=== PATIENT | male | born 1965 | race Caucasian/White ===

== ENCOUNTER 2018-07-18 08:45 | Inpatient (IN) | payer OTHER ==
--- NOTE | 2018-07-14 11:34 | PCM.PREANE ---
Preanesthetic Assessment - Anesthesia/Transfusion/Family Hx Anesthesia History: Prior Anesthesia Without Reaction Family History of Anesthesia Reaction: No Transfusion History: No Prior Transfusion(s) Intubation History: Unknown - Review of Systems Pulmonary: No Symptoms (ALESSIO/quit smoking) Neurological: No Symptoms (DJD/ History of Spondylosis with back pain) - Physical Assessment NPO Status Date: 07/17/18 Height: 1.85 m ASA Class: 2 Mental Status: Alert & Oriented x3 - Lab Values: Laboratory Last Values MRSA (PCR) Negative 06/21/18 10:22 - Imaging/EKG Impressions: EKG: NSR rate= 67, Incomplete RBBB, voltage criteria: left ventricular hypertrophy Echocardiogram: CXR: negative - Allergies Allergies/Adverse Reactions: Allergies Allergy/AdvReac Type Severity Reaction Status Date / Time No Known Allergies Allergy Verified 05/22/16 06:39 - Anesthesia Plan Pre-Op Medication Ordered: Other (pre-op meds: lyrica, tylenol, oxycodone given at:) - Acknowledgements Anesthesia Type Planned: Spinal Pt an Appropriate Candidate for the Planned Anesthesia: Yes Alternatives and Risks of Anesthesia Discussed w Pt/Guardian: Yes Pt/Guardian Understands and Agrees with Anesthesia Plan: Yes PreAnesthesia Questionnaire - CURRENT (IN HOUSE) MEDS Current Meds: Current Medications Acetaminophen (Tylenol) 975 mg PO ONETIME [facility] Stop: 07/18/18 18:00 Oxycodone HCl (Oxycontin) 10 mg PO ONETIME [facility] Stop: 07/18/18 18:00 Pregabalin (Lyrica) 50 mg PO ONETIME [facility] Stop: 07/18/18 18:00
[~2018-07-18 08:45] MED LIST: Acetaminophen 325 MG Tab PO SCH; Lactated Ringers 1,000 ML IV SCH; Lidocaine 1%/Sod Bicarbonate in NS 8.4% 1 ML Syringe IDERM PRN; Pregabalin 25 MG Cap PO SCH; Sodium Chloride 0.9% 10 ML Syringe FLUSH PRN; oxyCODONE ER 10 MG TAB.ER PO SCH
--- NOTE | 2018-07-29 13:47 | PCM.PREANE ---
Preanesthetic Assessment - Anesthesia/Transfusion/Family Hx Anesthesia History: Prior Anesthesia Without Reaction Family History of Anesthesia Reaction: No Transfusion History: No Prior Transfusion(s) Intubation History: Unknown - Review of Systems Pulmonary: No Symptoms (Quit smoking in 1989, ALESSIO, Chewing tobacco:) Neurological: No Symptoms (Back Pain/Spondylosis noted/DJD) - Physical Assessment NPO Status Date: 07/31/18 Height: 1.85 m ASA Class: 2 - Lab Values: Laboratory Last Values MRSA (PCR) Negative 07/26/18 10:11 All lab values reviewed and noted and within acceptable ranges to proceed with scheduled procedure. - Imaging/EKG Impressions: EKG: NSR rate=67, Incomplete right BBB, left ventricular hypertrophy (voltage criteria). Echocardiogram: EF:60-65%, trace tricuspid valve regurgitation CXR: negative - Allergies Allergies/Adverse Reactions: Allergies Allergy/AdvReac Type Severity Reaction Status Date / Time No Known Allergies Allergy Verified 05/22/16 06:39 - Anesthesia Plan Pre-Op Medication Ordered: Other (PreOperative Meds: lyrica, tylenol, oxycontin( all P.O.).) - Acknowledgements Anesthesia Type Planned: Spinal (Left adductor canal block under US guidance for post operative pain control requested by Dr. Gonzalez.) Pt an Appropriate Candidate for the Planned Anesthesia: Yes Alternatives and Risks of Anesthesia Discussed w Pt/Guardian: Yes Pt/Guardian Understands and Agrees with Anesthesia Plan: Yes PreAnesthesia Questionnaire - CURRENT (IN HOUSE) MEDS Current Meds: Current Medications Acetaminophen (Tylenol) 975 mg PO ONETIME [facility] Stop: 08/01/18 14:00 Lactated Ringer's (Ringers, Lactated) 1,000 mls @ 125 mls/hr IV ASDIRECTED [facility] Stop: 08/01/18 23:00 Lidocaine/Sodium Bicarbonate (Buffered Lidocaine 1% In Ns 8.4%) 0.25 ml IDERM ONETIME PRN PRN Reason: Prior to IV Start Stop: 08/01/18 18:00 Oxycodone HCl (Oxycontin) 10 mg PO ONETIME [facility] Stop: 08/01/18 14:00 Pregabalin (Lyrica) 50 mg PO ONETIME [facility] Stop: 08/01/18 14:00 Sodium Chloride (Saline Flush) 10 ml FLUSH ASDIRECTED PRN PRN Reason: Keep Vein Open Stop: 08/01/18 18:00 Discontinued Medications Acetaminophen (Tylenol) 975 mg PO ONETIME [facility] Stop: 07/18/18 18:00 Lactated Ringer's (Ringers, Lactated) 1,000 mls @ 125 mls/hr IV ASDIRECTED [facility] Stop: 07/18/18 23:00 Lidocaine/Sodium Bicarbonate (Buffered Lidocaine 1% In Ns 8.4%) 0.25 ml IDERM ONETIME PRN PRN Reason: Prior to IV Start Stop: 07/18/18 18:00 Oxycodone HCl (Oxycontin) 10 mg PO ONETIME [facility] Stop: 07/18/18 18:00 Pregabalin (Lyrica) 50 mg PO ONETIME [facility] Stop: 07/18/18 18:00 Sodium Chloride (Saline Flush) 10 ml FLUSH ASDIRECTED PRN PRN Reason: Keep Vein Open Stop: 07/18/18 18:00
[2018-08-01] MEDS ORDERED: Lactated Ringers 1,000 ML IV SCH (00:01)
[2018-08-01] MEDS ORDERED: Sodium Chloride 0.9% 10 ML Syringe FLUSH PRN (00:01)
[2018-08-01] MEDS ORDERED: Lidocaine 1%/Sod Bicarbonate in NS 8.4% 1 ML Syringe IDERM PRN (00:01)
[2018-08-01] MEDS ORDERED: oxyCODONE ER 10 MG TAB.ER PO SCH (06:00)
[2018-08-01] MEDS ORDERED: Pregabalin 25 MG Cap PO SCH (06:00)
[2018-08-01] MEDS ORDERED: Acetaminophen 325 MG Tab PO SCH (06:00)
[2018-11-07] MEDS ORDERED: Lactated Ringers 1,000 ML IV SCH (00:01)
[2018-11-07] MEDS ORDERED: Lidocaine 1%/Sod Bicarbonate in NS 8.4% 1 ML Syringe IDERM PRN (00:01)
[2018-11-07] MEDS ORDERED: Pregabalin 25 MG Cap PO SCH (06:00)
[2018-11-07] MEDS ORDERED: oxyCODONE ER 10 MG TAB.ER PO SCH (06:00)
[2018-11-07] MEDS ORDERED: Acetaminophen 325 MG Tab PO SCH (06:00)
[2018-11-07] MEDS ORDERED: Ropivacaine 0.5% 5 MG/ML 30 ML SDV ONE (07:18)
[2018-11-07] MEDS ORDERED: EPINEPHrine 1 MG/ML SDV ONE (07:18)
[2018-11-07] MEDS ORDERED: Propofol 200 MG/20 ML SDV ONE ×6 (07:22→09:57)
[2018-11-07] MEDS ORDERED: fentaNYL 100 MCG/2 ML SDV ONE ×2 (07:22→09:55)
[2018-11-07] MEDS ORDERED: Midazolam 1 MG/ML 2 ML SDV ONE ×2 (07:23→09:56)
[2018-11-07] MEDS ORDERED: Lidocaine 1% 4 ML ONE (07:27)
[2018-11-07] MEDS ORDERED: Lidocaine 1% 2 ML ONE (07:30)
[2018-11-07] MEDS ORDERED: Bupivacaine 0.75% 30 ML SDV ONE ×2 (07:30→09:59)
[2018-11-07] MEDS ORDERED: Vancomycin 1 GM SDV ONE (07:31)
[2018-11-07] MEDS ORDERED: Iodine/Sodium Iodide 2% Tincture 30 ML Bottle ONE (07:31)
[2018-11-07] MEDS ORDERED: Bupivacaine 0.25% 10 ML SDV ONE (07:32)
[2018-11-07] MEDS ORDERED: ceFAZolin 1 GM Vial ONE ×3 (07:32→10:02)
--- NOTE | 2018-11-07 07:46 | PCM.PREANE ---
Preanesthetic Assessment - Anesthesia/Transfusion/Family Hx Anesthesia History: Prior Anesthesia Without Reaction Family History of Anesthesia Reaction: No Transfusion History: No Prior Transfusion(s) Intubation History: Unknown - Review of Systems General: No Symptoms Pulmonary: No Symptoms Cardiovascular: No Symptoms Gastrointestinal: No Symptoms Neurological: No Symptoms Other: Reports: None - Physical Assessment NPO Status Date: 07/31/18 NPO Status Time: 22:00 Pulse: 68 O2 Sat by Pulse Oximetry: 96 Respiratory Rate: 16 Blood Pressure: 156/94 Temperature: 36.6 C Height: 1.85 m Weight: 114.759 kg ASA Class: 2 Mental Status: Alert & Oriented x3 Airway Class: Mallampati = 1 Dentition: Reports: Normal Dentition Thyro-Mental Finger Breadths: 3 Mouth Opening Finger Breadths: 5 ROM/Head Extension: Full Lungs: Clear to Auscultation, Normal Respiratory Effort Cardiovascular: Regular Rate, Regular Rhythm - Lab Values: Laboratory Last Values MRSA (PCR) Negative 10/24/18 14:10 - Allergies Allergies/Adverse Reactions: Allergies Allergy/AdvReac Type Severity Reaction Status Date / Time No Known Allergies Allergy Verified 11/06/18 19:07 - Blood Blood Available: No - Anesthesia Plan Pre-Op Medication Ordered: Beta Nilson Beta Nilson: Metoprolol Med Last Dose Date: 11/07/18 Med Last Dose Time: 08:00 - Acknowledgements Anesthesia Type Planned: Spinal, MAC Pt an Appropriate Candidate for the Planned Anesthesia: Yes Alternatives and Risks of Anesthesia Discussed w Pt/Guardian: Yes Pt/Guardian Understands and Agrees with Anesthesia Plan: Yes PreAnesthesia Questionnaire HEENT History: Reports: Other (See Below) Other HEENT History: hearing loss, nasal fracutre, tinnitis Cardiovascular History: Reports: Aneurysm Respiratory History: Reports: Sleep Apnea Gastrointestinal History: Reports: None Genitourinary History: Reports: None HAND ROLLER History: Reports: None Musculoskeletal History: Reports: Other (See Below) Other Musculoskeletal History: spondylosis, left knee pain, back pain, rotator cuff strain Neurological History: Reports: None Psychiatric History: Reports: None Endocrine/Metabolic History: Reports: None Hematologic History: Reports: None Immunologic History: Reports: None Oncologic (Cancer) History: Reports: None Dermatologic History: Reports: None - Past Surgical History Head Surgeries/Procedures: Reports: None Cardiovascular Surgical History: Reports: None Respiratory Surgical History: Reports: None GI Surgical History: Reports: Colonoscopy Female Surgical History: Reports: None Male Surgical History: Reports: None Endocrine Surgical History: Reports: None Neurological Surgical History: Reports: None Musculoskeletal Surgical History: Reports: Arthroscopic Knee Oncologic Surgical History: Reports: None - SUBSTANCE USE Smoking Status *Q: Current Every Day Smoker Tobacco Use Within Last Twelve Months: Snuff/Dip Recreational Drug Use History: No - HOME MEDS Home Medications: Home Meds Cholecalciferol (Vitamin D3) [Vitamin D3] 5,000 unit PO DAILY 11/06/18 [History] Metoprolol Succinate [Toprol Xl] 25 mg PO DAILY 11/06/18 [History] - CURRENT (IN HOUSE) MEDS Current Meds: Current Medications Acetaminophen (Tylenol) 975 mg PO ONETIME [facility] Stop: 11/07/18 14:00 Last Admin: 11/07/18 07:35 Dose: 975 mg Aspirin (Ecotrin) 325 mg PO BID MICHELINE Bisacodyl (Dulcolax) 5 mg PO DAILY PRN PRN Reason: Constipation Morphine Sulfate 8 mg/Epinephrine HCl 0.3 mg/Cefuroxime Sodium 750 mg/Ketorolac Tromethamine 30 mg/Sodium Chloride 27.9 ml 0 mg .XX ONETIME ONE Stop: 11/07/18 09:01 Cyclobenzaprine HCl (Flexeril) 10 mg PO TID PRN PRN Reason: Spasms Docusate Sodium (Colace) 100 mg PO BID MICHELINE Famotidine (Pepcid) 20 mg PO Q12H [facility] Lactated Ringer's (Ringers, Lactated) 1,000 mls @ 125 mls/hr IV ASDIRECTED [facility] Stop: 11/07/18 23:00 Cefazolin Sodium/Dextrose 2 gm (/ Premix) 50 mls @ 100 mls/hr IV Q8H [facility] Stop: 11/07/18 23:29 Ketorolac Tromethamine (Toradol) 15 mg IVPUSH Q6H PRN PRN Reason: Pain Lidocaine/Sodium Bicarbonate (Buffered Lidocaine 1% In Ns 8.4%) 0.25 ml IDERM ONETIME PRN PRN Reason: Prior to IV Start Stop: 11/07/18 18:00 Magnesium Hydroxide (Milk Of Magnesia) 30 ml PO BID PRN PRN Reason: Constipation Morphine Sulfate (Morphine) 2 mg IVPUSH Q2H PRN PRN Reason: Breakthrough Pain Naloxone HCl (Narcan) 0.1 mg IVPUSH Q5M PRN PRN Reason: Oversedation Ondansetron HCl (Zofran) 4 mg IVPUSH Q6H PRN PRN Reason: Nausea/Vomiting Oxycodone HCl (Oxycontin) 10 mg PO ONETIME [facility] Stop: 11/07/18 14:00 Last Admin: 11/07/18 07:34 Dose: 10 mg Oxycodone/Acetaminophen (Percocet 325-5 Mg) 1 - 2 tab PO Q4H PRN PRN Reason: Pain Pregabalin (Lyrica) 50 mg PO ONETIME [facility] Stop: 11/07/18 14:00 Last Admin: 11/07/18 07:33 Dose: 50 mg Senna (Senna) 8.6 mg PO BID PRN PRN Reason: Constipation Discontinued Medications Acetaminophen (Tylenol) 975 mg PO ONETIME [facility] Stop: 07/18/18 18:00 Acetaminophen (Tylenol) 975 mg PO ONETIME [facility] Stop: 08/01/18 14:00 Bupivacaine HCl (Sensorcaine-Mpf 0.75%) Confirm Administered Dose 30 ml .ROUTE .STK-MED ONE Stop: 11/07/18 07:31 Bupivacaine HCl (Sensorcaine-Mpf 0.25%) Confirm Administered Dose 30 ml .ROUTE .STK-MED ONE Stop: 11/07/18 07:33 Cefazolin Sodium (Ancef) Confirm Administered Dose 2 gm .ROUTE .STK-MED ONE Stop: 11/07/18 07:33 Epinephrine HCl (Adrenalin) Confirm Administered Dose 1 mg .ROUTE .STK-MED ONE Stop: 11/07/18 07:19 Fentanyl (Sublimaze) Confirm Administered Dose 100 mcg .ROUTE .STK-MED ONE Stop: 11/07/18 07:23 Lactated Ringer's (Ringers, Lactated) 1,000 mls @ 125 mls/hr IV ASDIRECTED [facility] Stop: 07/18/18 23:00 Lactated Ringer's (Ringers, Lactated) 1,000 mls @ 125 mls/hr IV ASDIRECTED [facility] Stop: 08/01/18 23:00 Lidocaine HCl (Xylocaine-Mpf 1%) Confirm Administered Dose 4 mls @ as directed .ROUTE .STK-MED ONE Stop: 11/07/18 07:28 Lidocaine HCl (Xylocaine-Mpf 1%) Confirm Administered Dose 2 mls @ as directed .ROUTE .STK-MED ONE Stop: 11/07/18 07:31 Iodine (Iodine 2% Mild Tincture) Confirm Administered Dose 30 ml .ROUTE .STK- MED ONE Stop: 11/07/18 07:32 Lidocaine/Sodium Bicarbonate (Buffered Lidocaine 1% In Ns 8.4%) 0.25 ml IDERM ONETIME PRN PRN Reason: Prior to IV Start Stop: 07/18/18 18:00 Lidocaine/Sodium Bicarbonate (Buffered Lidocaine 1% In Ns 8.4%) 0.25 ml IDERM ONETIME PRN PRN Reason: Prior to IV Start Stop: 08/01/18 18:00 Midazolam HCl (Versed 1 Mg/Ml) Confirm Administered Dose 2 mg .ROUTE .STK-MED ONE Stop: 11/07/18 07:24 Oxycodone HCl (Oxycontin) 10 mg PO ONETIME [facility] Stop: 07/18/18 18:00 Oxycodone HCl (Oxycontin) 10 mg PO ONETIME [facility] Stop: 08/01/18 14:00 Pregabalin (Lyrica) 50 mg PO ONETIME [facility] Stop: 07/18/18 18:00 Pregabalin (Lyrica) 50 mg PO ONETIME [facility] Stop: 08/01/18 14:00 Propofol (Diprivan 20 Ml) Confirm Administered Dose 400 mg .ROUTE .STK-MED ONE Stop: 11/07/18 07:23 Propofol (Diprivan 20 Ml) Confirm Administered Dose 200 mg .ROUTE .STK-MED ONE Stop: 11/07/18 07:24 Ropivacaine (Naropin 0.5%) Confirm Administered Dose 30 ml .ROUTE .STK-MED ONE Stop: 11/07/18 07:19 Sodium Chloride (Saline Flush) 10 ml FLUSH ASDIRECTED PRN PRN Reason: Keep Vein Open Stop: 07/18/18 18:00 Sodium Chloride (Saline Flush) 10 ml FLUSH ASDIRECTED PRN PRN Reason: Keep Vein Open Stop: 08/01/18 18:00 Tranexamic Acid (Cyklokapron) Confirm Administered Dose 1,000 mg .ROUTE .STK- MED ONE Stop: 11/07/18 07:32 Vancomycin HCl (Vancomycin) Confirm Administered Dose 1 gm .ROUTE .[facility] ONE Stop: 11/07/18 07:32
[2018-11-07] MEDS ORDERED: diphenhydrAMINE 50 MG/ML SDV IVPUSH PRN (07:53)
[2018-11-07] MEDS ORDERED: Ondansetron 4 MG/2 ML SDV IVPUSH PRN ×2 (07:53→10:00)
[2018-11-07] MEDS ORDERED: fentaNYL 100 MCG/2 ML SDV IVPUSH PRN (07:53)
[2018-11-07] MEDS ORDERED: Lactated Ringers 1,000 ML ONE (09:22)
[2018-11-07] MEDS ORDERED: ePHEDrine/Normal Saline 25 MG/5 ML Syringe ONE (09:39)
--- NOTE | 2018-11-07 09:57 | PCM.CONS ---
H&P History of Present Illness - General Date of Service: 11/07/18 Admit Problem/Dx: Admission Diagnosis/Problem Admission Diagnosis/Problem Osteoarthritis of knee Source of Information: Patient, Old Records, Provider, RN, RN Notes Reviewed History Limitations: Reports: No Limitations - History of Present Illness Initial Comments - Free Text/Narative: Robin Lopez is a 53 yo male patient of Dr. Gonzalez who is post-operative day 0 of left TKA. Hospital medicine was consulted for post-operative medical care. At this time he is resting comfortably in bed. Pain is controlled. He denies any chest pain, shortness of breath, palpitations, nausea, or vomiting. He carries a history of: HABEMATOLEL, Spondylolysis, LBP, ALESSIO, HTN, Aortic aneurism - 4.5cm at root. He is a former smoker. He is a full code. His primary care provider is Dr. Berumen with the [facility]. Left Knee Pain Score (Numeric/FACES): 8 - Related Data Allergies/Adverse Reactions: Allergies Allergy/AdvReac Type Severity Reaction Status Date / Time No Known Allergies Allergy Verified 11/06/18 19:07 Home Medications: Home Meds Cholecalciferol (Vitamin D3) [Vitamin D3] 5,000 unit PO DAILY 11/06/18 [History] Metoprolol Succinate [Toprol Xl] 25 mg PO DAILY 11/06/18 [History] Past Medical History HEENT History: Reports: Other (See Below) Other HEENT History: hearing loss, nasal fracutre, tinnitis Cardiovascular History: Reports: Aneurysm Respiratory History: Reports: Sleep Apnea Gastrointestinal History: Reports: None Genitourinary History: Reports: None SPARMAKER History: Reports: None Musculoskeletal History: Reports: Other (See Below) Other Musculoskeletal History: spondylosis, left knee pain, back pain, rotator cuff strain Neurological History: Reports: None Psychiatric History: Reports: None Endocrine/Metabolic History: Reports: None Hematologic History: Reports: None Immunologic History: Reports: None Oncologic (Cancer) History: Reports: None Dermatologic History: Reports: None - Past Surgical History Head Surgeries/Procedures: Reports: None Cardiovascular Surgical History: Reports: None Respiratory Surgical History: Reports: None GI Surgical History: Reports: Colonoscopy Female Surgical History: Reports: None Male Surgical History: Reports: None Endocrine Surgical History: Reports: None Neurological Surgical History: Reports: None Musculoskeletal Surgical History: Reports: Arthroscopic Knee Oncologic Surgical History: Reports: None Social & Family History - Tobacco Use Smoking Status *Q: Current Every Day Smoker Years of Tobacco use: 25 Packs/Tins Daily: 0.2 Used Tobacco, but Quit: No - Caffeine Use Caffeine Use: Reports: Coffee - Recreational Drug Use Recreational Drug Use: No H&P Review of Systems - Review of Systems: Review Of Systems: See Below General: Reports: No Symptoms. Denies: Fever, Chills, Malaise, Weakness, Fatigue HEENT: Reports: No Symptoms. Denies: Headaches, Sore Throat Pulmonary: Reports: No Symptoms. Denies: Shortness of Breath, Wheezing, Pleuritic Chest Pain, Cough, Sputum Cardiovascular: Reports: No Symptoms. Denies: Chest Pain, Palpitations, Edema Gastrointestinal: Reports: No Symptoms. Denies: Abdominal Pain, Constipation, Diarrhea, Nausea, Vomiting Genitourinary: Reports: No Symptoms. Denies: Pain Musculoskeletal: Reports: Leg Pain Skin: Reports: No Symptoms Psychiatric: Reports: No Symptoms. Denies: Confusion Neurological: Reports: No Symptoms Hematologic/Lymphatic: Reports: No Symptoms Immunologic: Reports: No Symptoms Exam - Exam Exam: See Below - Vital Signs Vital Signs: Last Vital Signs Temp 97.9 F 11/07/18 07:51 Pulse 68 11/07/18 07:51 Resp 16 11/07/18 07:51 BP 156/94 H 11/07/18 07:51 Pulse Ox 96 11/07/18 07:51 Weight: 253 lb - Exam Quality Assessment: DVT Prophylaxis General: Alert, Oriented, Cooperative. No: Mild Distress HEENT: Conjunctiva Clear, EACs Clear, EOMI, Hearing Intact, Mucosa Moist & [place] , Nares Patent, Normal Nasal Septum, Posterior Pharynx Clear, PERRLA Neck: Supple, Trachea Midline Lungs: Clear to Auscultation, Normal Respiratory Effort Cardiovascular: Regular Rate, Regular Rhythm GI/Abdominal Exam: Normal Bowel Sounds, Soft, Non-Tender, No Distention, No Abnormal Bruit (Male) Exam: Deferred Rectal (Males) Exam: Deferred Back Exam: Normal Inspection, Full Range of Motion Extremities: No Pedal Edema, Normal Capillary Refill, Leg Pain, Limited Range of Motion, Other (Bandage in place on left leg. Bandage is dry and intact. Cooling pack in place. ) Peripheral Pulses: 2+: Radial (L), Radial (R), Dorsalis Pedis (L), Dorsalis Pedis (R) Skin: Warm, Dry, Intact Neurological: Cranial Nerves Intact (grossly ) Neuro Extensive - Mental Status: Alert, Oriented x3, Normal Mood/Affect, Normal Cognition, Memory Intact - Patient Data Lab Results Last 24 hrs: Laboratory Results - last 24 hr 11/07/18 Range/Units 07:37 APTT 29 (24-31) SECONDS Consult PN Assessment/Plan POD#: 0 Procedures: Procedures CT ANGIOGRAPHY CHEST (08/16/18) POLYSOM 6/>YRS CPAP 4/> PARM (07/20/16) TTE W/DOPPLER COMPLETE (07/21/18) X-RAY EXAM CHEST 2 VIEWS (06/29/18) X-RAY EXAM OF SHOULDER (08/30/14) (1) S/P total knee arthroplasty SNOMED Code(s): 4676920944568, 986291227, 2132340722757 Code(s): Z96.659 - PRESENCE OF UNSPECIFIED ARTIFICIAL KNEE JOINT Priority: High Current Visit: Yes Qualifiers: Laterality: left Qualified Code(s): Z96.652 - Presence of left artificial knee joint (2) Spondylolysis SNOMED Code(s): 209447790 Code(s): M43.00 - SPONDYLOLYSIS, SITE UNSPECIFIED Priority: Low Current Visit: No (3) Lower back pain SNOMED Code(s): 357236211 Code(s): M54.5 - LOW BACK PAIN Priority: Low Current Visit: No Qualifiers: Chronicity: chronic Back pain laterality: unspecified Sciatica presence: unspecified whether sciatica present Qualified Code(s): M54.5 - Low back pain ; G89.29 - Other chronic pain (4) ALESSIO (obstructive sleep apnea) SNOMED Code(s): 32424404 Code(s): G47.33 - OBSTRUCTIVE SLEEP APNEA (ADULT) (PEDIATRIC) Priority: Medium Current Visit: No (5) HTN (hypertension) SNOMED Code(s): 58791263 Code(s): I10 - ESSENTIAL (PRIMARY) HYPERTENSION Priority: Low Current Visit: No Qualifiers: Hypertension type: unspecified Qualified Code(s): I10 - Essential (primary ) hypertension (6) Aortic arch aneurysm SNOMED Code(s): 549804888 Code(s): I71.2 - THORACIC AORTIC ANEURYSM, WITHOUT RUPTURE Priority: Medium Current Visit: No Problem List Initiated/Reviewed/Updated: Yes Plan: I/P: Acute: S/P left total knee arthroplasty - post-operative day 0 -DVT prophylaxis and pain management per primary care team -PT/OT -IS/RT -Monitor oxygen saturation -Titrate oxygen as needed -Vital signs stable -Monitor labs -Pre-operative Hgb was 15.4 -Pre-operative GFR was >60 -LVEF of 60-65% Osteoarthritis of left knee -Pain management per primary care team Chronic: HABEMATOLEL Spondylolysis Lower back pain ALESSIO HTN 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 His PCP is Dr. Berumen with the [facility], Principal Ios Developer: Dr. Hart Thank you for allowing us to participate in the care of this patient!! Requesting Provider: Dr. Gonzalez Date Consult Requested: 11/07/18 Reason for Consult: Post-operative medical managment Patient History Reviewed: Yes Admission H&P Reviewed: Yes Time Spent (in minutes): 40
[2018-11-07] MEDS ORDERED: Ondansetron 4 MG/2 ML SDV ONE (09:59)
[2018-11-07] MEDS ORDERED: Lidocaine 1% 0 ML ONE (09:59)
[2018-11-07] MEDS ORDERED: Bisacodyl 5 MG Tab PO PRN (10:00)
[2018-11-07] MEDS ORDERED: Naloxone 0.4 MG/ML SDV IVPUSH PRN (10:00)
[2018-11-07] MEDS ORDERED: Sennosides 8.6 MG Tab PO PRN (10:00)
[2018-11-07] MEDS ORDERED: Magnesium Hydroxide 400 MG/5 ML Susp 30 ML Cup PO PRN (10:00)
[2018-11-07] MEDS ORDERED: Morphine 2 MG/ML Syringe IVPUSH PRN (10:00)
[2018-11-07] MEDS: Morphine 8 MG, EPINEPHrine 0.3 MG, Cefuroxime 750 MG, Ketorolac 30 MG, Sodium Chloride ... ONE ×10 (10:17→13:58)
--- NOTE | 2018-11-07 10:55 | PCM.POSTAN ---
POST ANESTHESIA ASSESSMENT - MENTAL STATUS Mental Status: Alert - VITAL SIGNS Pulse Rate: 70 SaO2: 95 Resp Rate: 16 Blood Pressure: 121/71 Temperature: 36.3 C - RESPIRATORY Respiratory Status: Respiratory Rate WNL, Airway Patent, O2 Saturation Stable - CARDIOVASCULAR CV Status: Pulse Rate WNL, Blood Pressure Stable - GASTROINTESTINAL GI Status: No Symptoms - POST OP HYDRATION Hydration Status: Adequate & Stable
--- NOTE | 2018-11-07 11:49 | PCM.SN ---
- Free Text/Narrative Note: Left selective femoral nerve block at the adductor canal for post-procedure pain control under US guidance requested by Dr. Gonzalez. Time Out: 1130 Start: 1130 End: 1136 Chart reviewed. Consent signed. Questions answered. Appropriate monitors applied. Time out performed. Left mid-shaft femur identified with ultrasound, scanning medially of femur, the femoral artery in the adductor canal visualized , and the femoral nerve located laterally to the artery. The skin was prepped lateral to the ultrasound probe with chlorahexadine times two. The 21ga 4 insulated block needle was inserted under direct ultrasound guidance into the adductor canal. 25mL of 0.5% ropivacaine with 1:200,000 epinephrine was injected circumferentially around the nerve with intermittent negative aspiration noted. Patient tolerated the procedure well. Sterile technique noted along with sterile gloves, mask, and sterile probe cover. See picture on progress note and vital signs on nurses notes. Block completed in PACU. JACOB Granger
--- NOTE | 2018-11-07 12:13 | CR ---
Left knee: Two portable views of the left knee were obtained. Comparison: No prior knee exam. Knee prosthesis is seen. Components are aligned. Soft tissue air is noted from the surgical procedure. Underlying bony structures are intact. Impression: 1. Satisfactory appearance of recently placed left knee prosthesis. Diagnostic code #2
[2018-11-07] MEDS: Acetaminophen/oxyCODONE 325-5 MG Tab PO PRN ×2 (13:43→18:33)
[2018-11-07] MEDS: Cyclobenzaprine 10 MG Tab PO PRN (15:45)
[2018-11-07] MEDS: ceFAZolin 2 GM in Premix Bag 1 BAG IV SCH (17:18)
[2018-11-07] MEDS: Docusate Sodium 100 MG Cap PO SCH (20:56)
[2018-11-07] MEDS: Famotidine 20 MG Tab PO SCH (20:56)
[2018-11-07] MEDS: Ketorolac 15 MG/ML SDV IVPUSH PRN (21:42)
[2018-11-08] MEDS: ceFAZolin 2 GM in Premix Bag 1 BAG IV SCH ×2 (00:30→09:00)
[2018-11-08] MEDS: Acetaminophen/oxyCODONE 325-5 MG Tab PO PRN ×2 (03:50→08:59)
[2018-11-08] MEDS: Ketorolac 15 MG/ML SDV IVPUSH PRN (06:46)
--- NOTE | 2018-11-08 07:10 | PCM.CONSN ---
- General Info Date of Service: 11/08/18 Admission Dx/Problem (Free Text): Admission Diagnosis/Problem Admission Diagnosis/Problem Osteoarthritis of knee Functional Status: Reports: Pain Controlled, Tolerating Diet, Ambulating, Urinating, Incentive Spirometry. Denies: New Symptoms - Review of Systems General: Reports: No Symptoms. Denies: Fever, Weakness, Chills HEENT: Reports: No Symptoms. Denies: Headaches, Sore Throat Pulmonary: Reports: No Symptoms. Denies: Shortness of Breath, Cough, Sputum, Wheezing Cardiovascular: Reports: No Symptoms. Denies: Chest Pain, Palpitations, Dyspnea on Exertion, Edema Gastrointestinal: Reports: No Symptoms. Denies: Abdominal Pain, Constipation, Diarrhea, Nausea, Vomiting Genitourinary: Reports: No Symptoms. Denies: Pain Musculoskeletal: Reports: Leg Pain Skin: Reports: No Symptoms Neurological: Reports: No Symptoms. Denies: Confusion Psychiatric: Reports: No Symptoms - Patient Data Vitals - Most Recent: Last Vital Signs Temp 98.1 F 11/07/18 20:52 Pulse 79 11/08/18 03:50 Resp 14 11/08/18 03:50 BP 131/85 11/08/18 03:50 Pulse Ox 95 11/08/18 03:50 Weight - Most Recent: 257 lb I&O - Last 24 Hours: Intake & Output 11/07/18 11/08/18 11/08/18 22:59 06:59 14:59 Intake Total 1100 300 Balance 1100 300 Lab Results Last 24 Hours: Laboratory Results - last 24 hr 11/07/18 11/08/18 11/08/18 Range/Units 07:37 05:30 05:30 WBC 8.50 (4.23-9.07) K/mm3 RBC 4.49 L (4.63-6.08) M/mm3 Hgb 13.2 L (13.7-17.5) gm/L Hct 39.4 L (40.1-51.0) % MCV 87.8 (79.0-92.2) fl MCH 29.4 (25.7-32.2) pg MCHC 33.5 (32.2-35.5) g/dl RDW Std Deviation 40.9 (35.1-43.9) fL Plt Count 197 (163-337) K/mm3 MPV 9.8 (9.4-12.3) fl APTT 29 (24-31) SECONDS Sodium 137 (136-145) mEq/L Potassium 4.1 (3.5-5.1) mEq/L Chloride 103 (98-107) mEq/L Carbon Dioxide 26 (21-32) mEq/L Anion Gap 12.1 (5-15) BUN 17 (7-18) mg/dL Creatinine 1.1 (0.7-1.3) mg/dL Est Cr Clr Drug Dosing 87.20 mL/min Estimated GFR (MDRD) > 60 (>60) mL/min BUN/Creatinine Ratio 15.5 (14-18) Glucose 118 H (74-106) mg/dL Calcium 8.2 L (8.5-10.1) mg/dL Total Bilirubin 1.2 H (0.2-1.0) mg/dL AST 15 (15-37) U/L ALT 34 (16-63) U/L Alkaline Phosphatase 46 (46-116) U/L Total Protein 6.2 L (6.4-8.2) g/dl Albumin 3.2 L (3.4-5.0) g/dl Globulin 3.0 gm/dL Albumin/Globulin Ratio 1.1 (1-2) Med Orders - Current: Current Medications Aspirin (Ecotrin) 325 mg PO BID [facility] Bisacodyl (Dulcolax) 5 mg PO DAILY PRN PRN Reason: Constipation Cholecalciferol (Vitamin D3) 5,000 unit PO DAILY [facility] Cyclobenzaprine HCl (Flexeril) 10 mg PO TID PRN PRN Reason: Spasms Last Admin: 11/07/18 15:45 Dose: 10 mg Docusate Sodium (Colace) 100 mg PO BID [facility] Last Admin: 11/07/18 20:56 Dose: 100 mg Famotidine (Pepcid) 20 mg PO Q12H [facility] Last Admin: 11/07/18 20:56 Dose: 20 mg Cefazolin Sodium/Dextrose 2 gm (/ Premix) 50 mls @ 100 mls/hr IV Q8H [facility] Stop: 11/08/18 09:59 Last Admin: 11/08/18 00:30 Dose: 100 mls/hr Ketorolac Tromethamine (Toradol) 15 mg IVPUSH Q6H PRN PRN Reason: Pain Last Admin: 11/08/18 06:46 Dose: 15 mg Magnesium Hydroxide (Milk Of Magnesia) 30 ml PO BID PRN PRN Reason: Constipation Metoprolol Succinate (Toprol Xl) 25 mg PO DAILY [facility] Morphine Sulfate (Morphine) 2 mg IVPUSH Q2H PRN PRN Reason: Breakthrough Pain Naloxone HCl (Narcan) 0.1 mg IVPUSH Q5M PRN PRN Reason: Oversedation Ondansetron HCl (Zofran) 4 mg IVPUSH Q6H PRN PRN Reason: Nausea/Vomiting Oxycodone/Acetaminophen (Percocet 325-5 Mg) 1 - 2 tab PO Q4H PRN PRN Reason: Pain Last Admin: 11/08/18 03:50 Dose: 2 tab Senna (Senna) 8.6 mg PO BID PRN PRN Reason: Constipation Discontinued Medications Acetaminophen (Tylenol) 975 mg PO ONETIME [facility] Stop: 07/18/18 18:00 Acetaminophen (Tylenol) 975 mg PO ONETIME [facility] Stop: 08/01/18 14:00 Acetaminophen (Tylenol) 975 mg PO ONETIME [facility] Stop: 11/07/18 14:00 Last Admin: 11/07/18 07:35 Dose: 975 mg Bupivacaine HCl (Sensorcaine-Mpf 0.75%) Confirm Administered Dose 30 ml .ROUTE .STK-MED ONE Stop: 11/07/18 07:31 Bupivacaine HCl (Sensorcaine-Mpf 0.25%) Confirm Administered Dose 30 ml .ROUTE .STK-MED ONE Stop: 11/07/18 07:33 Last Admin: 11/07/18 10:18 Dose: 30 ml Bupivacaine HCl (Sensorcaine-Mpf 0.75%) Confirm Administered Dose 30 ml .ROUTE .STK-MED ONE Stop: 11/07/18 10:00 Cefazolin Sodium (Ancef) Confirm Administered Dose 2 gm .ROUTE .STK-MED ONE Stop: 11/07/18 07:33 Last Admin: 11/07/18 10:12 Dose: 2 gm Cefazolin Sodium (Ancef) Confirm Administered Dose 2 gm .ROUTE .STK-MED ONE Stop: 11/07/18 09:27 Cefazolin Sodium (Ancef) Confirm Administered Dose 2 gm .ROUTE .STK-MED ONE Stop: 11/07/18 10:03 Morphine Sulfate 8 mg/Epinephrine HCl 0.3 mg/Cefuroxime Sodium 750 mg/Ketorolac Tromethamine 30 mg/Sodium Chloride 27.9 ml 0 mg .XX ONETIME ONE Stop: 11/07/18 09:01 Last Admin: 11/07/18 13:58 Dose: Not Given Diphenhydramine HCl (Benadryl) 25 mg IVPUSH Q6H PRN PRN Reason: pruritis Stop: 11/07/18 16:00 Ephedrine Sulfate (Ephedrine In Ns) Confirm Administered Dose 25 mg .ROUTE .STK- MED ONE Stop: 11/07/18 09:40 Epinephrine HCl (Adrenalin) Confirm Administered Dose 1 mg .ROUTE .STK-MED ONE Stop: 11/07/18 07:19 Fentanyl (Sublimaze) Confirm Administered Dose 100 mcg .ROUTE .STK-MED ONE Stop: 11/07/18 07:23 Fentanyl (Sublimaze) 50 mcg IVPUSH Q5M PRN PRN Reason: Pain Stop: 11/07/18 16:00 Fentanyl (Sublimaze) Confirm Administered Dose 100 mcg .ROUTE .STK-MED ONE Stop: 11/07/18 09:56 Lactated Ringer's (Ringers, Lactated) 1,000 mls @ 125 mls/hr IV ASDIRECTED [facility] Stop: 07/18/18 23:00 Lactated Ringer's (Ringers, Lactated) 1,000 mls @ 125 mls/hr IV ASDIRECTED [facility] Stop: 08/01/18 23:00 Lactated Ringer's (Ringers, Lactated) 1,000 mls @ 125 mls/hr IV ASDIRECTED [facility] Stop: 11/07/18 23:00 Last Admin: 11/07/18 07:45 Dose: 125 mls/hr Lidocaine HCl (Xylocaine-Mpf 1%) Confirm Administered Dose 4 mls @ as directed .ROUTE .STK-MED ONE Stop: 11/07/18 07:28 Lidocaine HCl (Xylocaine-Mpf 1%) Confirm Administered Dose 2 mls @ as directed .ROUTE .STK-MED ONE Stop: 11/07/18 07:31 Lactated Ringer's (Ringers, Lactated) Confirm Administered Dose 1,000 mls @ as directed .ROUTE .STK-MED ONE Stop: 11/07/18 09:23 Lidocaine HCl (Xylocaine-Mpf 1%) Confirm Administered Dose 0 mls @ as directed .ROUTE .STK-MED ONE Stop: 11/07/18 10:00 Iodine (Iodine 2% Mild Tincture) Confirm Administered Dose 30 ml .ROUTE .STK- MED ONE Stop: 11/07/18 07:32 Last Admin: 11/07/18 10:10 Dose: 18 ml Lidocaine/Sodium Bicarbonate (Buffered Lidocaine 1% In Ns 8.4%) 0.25 ml IDERM ONETIME PRN PRN Reason: Prior to IV Start Stop: 07/18/18 18:00 Lidocaine/Sodium Bicarbonate (Buffered Lidocaine 1% In Ns 8.4%) 0.25 ml IDERM ONETIME PRN PRN Reason: Prior to IV Start Stop: 08/01/18 18:00 Lidocaine/Sodium Bicarbonate (Buffered Lidocaine 1% In Ns 8.4%) 0.25 ml IDERM ONETIME PRN PRN Reason: Prior to IV Start Stop: 11/07/18 18:00 Last Admin: 11/07/18 07:45 Dose: 0.25 ml Midazolam HCl (Versed 1 Mg/Ml) Confirm Administered Dose 2 mg .ROUTE .STK-MED ONE Stop: 11/07/18 07:24 Midazolam HCl (Versed 1 Mg/Ml) Confirm Administered Dose 2 mg .ROUTE .STK-MED ONE Stop: 11/07/18 09:57 Ondansetron HCl (Zofran) 4 mg IVPUSH ONETIME PRN PRN Reason: Nausea/Vomiting Stop: 11/07/18 16:00 Ondansetron HCl (Zofran) Confirm Administered Dose 4 mg .ROUTE .STK-MED ONE Stop: 11/07/18 10:00 Oxycodone HCl (Oxycontin) 10 mg PO ONETIME [facility] Stop: 07/18/18 18:00 Oxycodone HCl (Oxycontin) 10 mg PO ONETIME [facility] Stop: 08/01/18 14:00 Oxycodone HCl (Oxycontin) 10 mg PO ONETIME [facility] Stop: 11/07/18 14:00 Last Admin: 11/07/18 07:34 Dose: 10 mg Pregabalin (Lyrica) 50 mg PO ONETIME [facility] Stop: 07/18/18 18:00 Pregabalin (Lyrica) 50 mg PO ONETIME [facility] Stop: 08/01/18 14:00 Pregabalin (Lyrica) 50 mg PO ONETIME [facility] Stop: 11/07/18 14:00 Last Admin: 11/07/18 07:33 Dose: 50 mg Propofol (Diprivan 20 Ml) Confirm Administered Dose 400 mg .ROUTE .STK-MED ONE Stop: 11/07/18 07:23 Propofol (Diprivan 20 Ml) Confirm Administered Dose 200 mg .ROUTE .STK-MED ONE Stop: 11/07/18 07:24 Propofol (Diprivan 20 Ml) Confirm Administered Dose 400 mg .ROUTE .STK-MED ONE Stop: 11/07/18 09:56 Propofol (Diprivan 20 Ml) Confirm Administered Dose 200 mg .ROUTE .STK-MED ONE Stop: 11/07/18 09:57 Propofol (Diprivan 20 Ml) Confirm Administered Dose 200 mg .ROUTE .STK-MED ONE Stop: 11/07/18 09:58 Propofol (Diprivan 20 Ml) Confirm Administered Dose 200 mg .ROUTE .STK-MED ONE Stop: 11/07/18 09:58 Ropivacaine (Naropin 0.5%) Confirm Administered Dose 30 ml .ROUTE .STK-MED ONE Stop: 11/07/18 07:19 Sodium Chloride (Saline Flush) 10 ml FLUSH ASDIRECTED PRN PRN Reason: Keep Vein Open Stop: 07/18/18 18:00 Sodium Chloride (Saline Flush) 10 ml FLUSH ASDIRECTED PRN PRN Reason: Keep Vein Open Stop: 08/01/18 18:00 Tranexamic Acid (Cyklokapron) Confirm Administered Dose 1,000 mg .ROUTE .STK- MED ONE Stop: 11/07/18 07:32 Last Admin: 11/07/18 10:29 Dose: 1,000 mg Vancomycin HCl (Vancomycin) Confirm Administered Dose 1 gm .ROUTE .STK-MED ONE Stop: 11/07/18 07:32 Last Admin: 11/07/18 10:20 Dose: 1 gm - Exam Quality Assessment: DVT Prophylaxis General: Alert, Oriented, Cooperative, No Acute Distress HEENT: Pupils Equal, Pupils Reactive, EOMI, Mucous Membr. Moist/[place] Neck: Supple, Trachea Midline, No JVD Lungs: Clear to Auscultation, Normal Respiratory Effort Cardiovascular: Regular Rate, Regular Rhythm GI/Abdominal Exam: Normal Bowel Sounds, Soft, Non-Tender, No Distention, No Abnormal Bruit (Male) Exam: Deferred Back Exam: Normal Inspection, Full Range of Motion Extremities: No Pedal Edema, Normal Capillary Refill, Leg Pain, Limited Range of Motion, Other (Bandage in place on right leg. Cooling pack in place. ) Peripheral Pulses: 2+: Radial (L), Radial (R), Dorsalis Pedis (L), Dorsalis Pedis (R) Skin: Warm, Dry, Intact Wound/Incisions: Dressing Dry and Intact, No Drainage Neurological: No New Focal Deficit Psy/Mental Status: Alert, Normal Affect, Normal Mood Consult PN Assessment/Plan POD#: 1 Procedures: Procedures CT ANGIOGRAPHY CHEST (08/16/18) POLYSOM 6/>YRS CPAP 4/> PARM (07/20/16) TTE W/DOPPLER COMPLETE (07/21/18) X-RAY EXAM CHEST 2 VIEWS (06/29/18) X-RAY EXAM OF SHOULDER (08/30/14) (1) S/P total knee arthroplasty SNOMED Code(s): 1910872632629, 228283135, 6128249805200 Code(s): Z96.659 - PRESENCE OF UNSPECIFIED ARTIFICIAL KNEE JOINT Priority: High Current Visit: Yes Qualifiers: Laterality: left Qualified Code(s): Z96.652 - Presence of left artificial knee joint (2) Spondylolysis SNOMED Code(s): 884103692 Code(s): M43.00 - SPONDYLOLYSIS, SITE UNSPECIFIED Priority: Low Current Visit: No (3) Lower back pain SNOMED Code(s): 603693932 Code(s): M54.5 - LOW BACK PAIN Priority: Low Current Visit: No Qualifiers: Chronicity: chronic Back pain laterality: unspecified Sciatica presence: unspecified whether sciatica present Qualified Code(s): M54.5 - Low back pain ; G89.29 - Other chronic pain (4) ALESSIO (obstructive sleep apnea) SNOMED Code(s): 08815698 Code(s): G47.33 - OBSTRUCTIVE SLEEP APNEA (ADULT) (PEDIATRIC) Priority: Medium Current Visit: No (5) HTN (hypertension) SNOMED Code(s): 67671072 Code(s): I10 - ESSENTIAL (PRIMARY) HYPERTENSION Priority: Low Current Visit: No Qualifiers: Hypertension type: unspecified Qualified Code(s): I10 - Essential (primary ) hypertension (6) Aortic arch aneurysm SNOMED Code(s): 392239939 Code(s): I71.2 - THORACIC AORTIC ANEURYSM, WITHOUT RUPTURE Priority: Medium Current Visit: No Problem List Initiated/Reviewed/Updated: Yes My Orders Last 24 Hours: My Active Orders 11/08/18 09:00 Metoprolol Succinate [Toprol XL] 25 mg PO DAILY Plan: I/P: Acute: S/P left total knee arthroplasty - post-operative day 1 -DVT prophylaxis and pain management per primary care team -PT/OT -IS/RT -Monitor oxygen saturation -Titrate oxygen as needed -Vital signs stable -Monitor labs -Pre-operative Hgb was 15.4; Now 13.2 -Pre-operative GFR was >60; Now >60 -LVEF of 60-65% Osteoarthritis of left knee -Pain management per primary care team Chronic: [place] Spondylolysis Lower back pain ALESSIO HTN 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 His PCP is Dr. Berumen with the [facility], Carpentry Instructor: Dr. Hart From a hospitalist standpoint Samuel is doing very well. His pain is controlled and he is up ambulating and working with therapies. Labs and vital signs remain stable. He has urinated and is off of oxygen. He is cleared for discharge pending primary team and PT/OT agreement. Thank you for allowing us to participate in the care of this patient!!
--- NOTE | 2018-11-08 07:56 | PCM.SURGPN ---
- General Info Date of Service: 11/08/18 POD#: 1 Functional Status: Reports: Pain Controlled, Tolerating Diet, Ambulating, Urinating, Incentive Spirometry, Other (The pt states he is doing well.) - Patient Data Vitals - Most Recent: Last Vital Signs Temp 98.1 F 11/07/18 20:52 Pulse 79 11/08/18 03:50 Resp 14 11/08/18 03:50 BP 131/85 11/08/18 03:50 Pulse Ox 95 11/08/18 03:50 Weight - Most Recent: 257 lb I&O - Last 24 Hours: Intake & Output 11/07/18 11/08/18 11/08/18 22:59 06:59 14:59 Intake Total 1100 300 Balance 1100 300 Lab Results Last 24 Hrs: Laboratory Results - last 24 hr 11/07/18 11/08/18 11/08/18 Range/Units 07:37 05:30 05:30 WBC 8.50 (4.23-9.07) K/mm3 RBC 4.49 L (4.63-6.08) M/mm3 Hgb 13.2 L (13.7-17.5) gm/L Hct 39.4 L (40.1-51.0) % MCV 87.8 (79.0-92.2) fl MCH 29.4 (25.7-32.2) pg MCHC 33.5 (32.2-35.5) g/dl RDW Std Deviation 40.9 (35.1-43.9) fL Plt Count 197 (163-337) K/mm3 MPV 9.8 (9.4-12.3) fl APTT 29 (24-31) SECONDS Sodium 137 (136-145) mEq/L Potassium 4.1 (3.5-5.1) mEq/L Chloride 103 (98-107) mEq/L Carbon Dioxide 26 (21-32) mEq/L Anion Gap 12.1 (5-15) BUN 17 (7-18) mg/dL Creatinine 1.1 (0.7-1.3) mg/dL Est Cr Clr Drug Dosing 87.20 mL/min Estimated GFR (MDRD) > 60 (>60) mL/min BUN/Creatinine Ratio 15.5 (14-18) Glucose 118 H (74-106) mg/dL Calcium 8.2 L (8.5-10.1) mg/dL Total Bilirubin 1.2 H (0.2-1.0) mg/dL AST 15 (15-37) U/L ALT 34 (16-63) U/L Alkaline Phosphatase 46 (46-116) U/L Total Protein 6.2 L (6.4-8.2) g/dl Albumin 3.2 L (3.4-5.0) g/dl Globulin 3.0 gm/dL Albumin/Globulin Ratio 1.1 (1-2) Med Orders - Current: Current Medications Aspirin (Ecotrin) 325 mg PO BID [facility] Bisacodyl (Dulcolax) 5 mg PO DAILY PRN PRN Reason: Constipation Cholecalciferol (Vitamin D3) 5,000 unit PO DAILY [facility] Cyclobenzaprine HCl (Flexeril) 10 mg PO TID PRN PRN Reason: Spasms Last Admin: 11/07/18 15:45 Dose: 10 mg Docusate Sodium (Colace) 100 mg PO BID [facility] Last Admin: 11/07/18 20:56 Dose: 100 mg Famotidine (Pepcid) 20 mg PO Q12H [facility] Last Admin: 11/07/18 20:56 Dose: 20 mg Cefazolin Sodium/Dextrose 2 gm (/ Premix) 50 mls @ 100 mls/hr IV Q8H [facility] Stop: 11/08/18 09:59 Last Admin: 11/08/18 00:30 Dose: 100 mls/hr Ketorolac Tromethamine (Toradol) 15 mg IVPUSH Q6H PRN PRN Reason: Pain Last Admin: 11/08/18 06:46 Dose: 15 mg Magnesium Hydroxide (Milk Of Magnesia) 30 ml PO BID PRN PRN Reason: Constipation Metoprolol Succinate (Toprol Xl) 25 mg PO DAILY [facility] Morphine Sulfate (Morphine) 2 mg IVPUSH Q2H PRN PRN Reason: Breakthrough Pain Naloxone HCl (Narcan) 0.1 mg IVPUSH Q5M PRN PRN Reason: Oversedation Ondansetron HCl (Zofran) 4 mg IVPUSH Q6H PRN PRN Reason: Nausea/Vomiting Oxycodone/Acetaminophen (Percocet 325-5 Mg) 1 - 2 tab PO Q4H PRN PRN Reason: Pain Last Admin: 11/08/18 03:50 Dose: 2 tab Senna (Senna) 8.6 mg PO BID PRN PRN Reason: Constipation Discontinued Medications Acetaminophen (Tylenol) 975 mg PO ONETIME [facility] Stop: 07/18/18 18:00 Acetaminophen (Tylenol) 975 mg PO ONETIME [facility] Stop: 08/01/18 14:00 Acetaminophen (Tylenol) 975 mg PO ONETIME [facility] Stop: 11/07/18 14:00 Last Admin: 11/07/18 07:35 Dose: 975 mg Bupivacaine HCl (Sensorcaine-Mpf 0.75%) Confirm Administered Dose 30 ml .ROUTE .STK-MED ONE Stop: 11/07/18 07:31 Bupivacaine HCl (Sensorcaine-Mpf 0.25%) Confirm Administered Dose 30 ml .ROUTE .STK-MED ONE Stop: 11/07/18 07:33 Last Admin: 11/07/18 10:18 Dose: 30 ml Bupivacaine HCl (Sensorcaine-Mpf 0.75%) Confirm Administered Dose 30 ml .ROUTE .STK-MED ONE Stop: 11/07/18 10:00 Cefazolin Sodium (Ancef) Confirm Administered Dose 2 gm .ROUTE .STK-MED ONE Stop: 11/07/18 07:33 Last Admin: 11/07/18 10:12 Dose: 2 gm Cefazolin Sodium (Ancef) Confirm Administered Dose 2 gm .ROUTE .STK-MED ONE Stop: 11/07/18 09:27 Cefazolin Sodium (Ancef) Confirm Administered Dose 2 gm .ROUTE .STK-MED ONE Stop: 11/07/18 10:03 Morphine Sulfate 8 mg/Epinephrine HCl 0.3 mg/Cefuroxime Sodium 750 mg/Ketorolac Tromethamine 30 mg/Sodium Chloride 27.9 ml 0 mg .XX ONETIME ONE Stop: 11/07/18 09:01 Last Admin: 11/07/18 13:58 Dose: Not Given Diphenhydramine HCl (Benadryl) 25 mg IVPUSH Q6H PRN PRN Reason: pruritis Stop: 11/07/18 16:00 Ephedrine Sulfate (Ephedrine In Ns) Confirm Administered Dose 25 mg .ROUTE .STK- MED ONE Stop: 11/07/18 09:40 Epinephrine HCl (Adrenalin) Confirm Administered Dose 1 mg .ROUTE .STK-MED ONE Stop: 11/07/18 07:19 Fentanyl (Sublimaze) Confirm Administered Dose 100 mcg .ROUTE .[facility] ONE Stop: 11/07/18 07:23 Fentanyl (Sublimaze) 50 mcg IVPUSH Q5M PRN PRN Reason: Pain Stop: 11/07/18 16:00 Fentanyl (Sublimaze) Confirm Administered Dose 100 mcg .ROUTE .[facility] ONE Stop: 11/07/18 09:56 Lactated Ringer's (Ringers, Lactated) 1,000 mls @ 125 mls/hr IV ASDIRECTED [facility] Stop: 07/18/18 23:00 Lactated Ringer's (Ringers, Lactated) 1,000 mls @ 125 mls/hr IV ASDIRECTED [facility] Stop: 08/01/18 23:00 Lactated Ringer's (Ringers, Lactated) 1,000 mls @ 125 mls/hr IV ASDIRECTED [facility] Stop: 11/07/18 23:00 Last Admin: 11/07/18 07:45 Dose: 125 mls/hr Lidocaine HCl (Xylocaine-Mpf 1%) Confirm Administered Dose 4 mls @ as directed .ROUTE .[facility] ONE Stop: 11/07/18 07:28 Lidocaine HCl (Xylocaine-Mpf 1%) Confirm Administered Dose 2 mls @ as directed .ROUTE .[facility] ONE Stop: 11/07/18 07:31 Lactated Ringer's (Ringers, Lactated) Confirm Administered Dose 1,000 mls @ as directed .ROUTE .[facility] Stop: 11/07/18 09:23 Lidocaine HCl (Xylocaine-Mpf 1%) Confirm Administered Dose 0 mls @ as directed .ROUTE .[facility] ONE Stop: 11/07/18 10:00 Iodine (Iodine 2% Mild Tincture) Confirm Administered Dose 30 ml .ROUTE .[facility] ONE Stop: 11/07/18 07:32 Last Admin: 11/07/18 10:10 Dose: 18 ml Lidocaine/Sodium Bicarbonate (Buffered Lidocaine 1% In Ns 8.4%) 0.25 ml IDERM ONETIME PRN PRN Reason: Prior to IV Start Stop: 07/18/18 18:00 Lidocaine/Sodium Bicarbonate (Buffered Lidocaine 1% In Ns 8.4%) 0.25 ml IDERM ONETIME PRN PRN Reason: Prior to IV Start Stop: 08/01/18 18:00 Lidocaine/Sodium Bicarbonate (Buffered Lidocaine 1% In Ns 8.4%) 0.25 ml IDERM ONETIME PRN PRN Reason: Prior to IV Start Stop: 11/07/18 18:00 Last Admin: 11/07/18 07:45 Dose: 0.25 ml Midazolam HCl (Versed 1 Mg/Ml) Confirm Administered Dose 2 mg .ROUTE .STK-MED ONE Stop: 11/07/18 07:24 Midazolam HCl (Versed 1 Mg/Ml) Confirm Administered Dose 2 mg .ROUTE .STK-MED ONE Stop: 11/07/18 09:57 Ondansetron HCl (Zofran) 4 mg IVPUSH ONETIME PRN PRN Reason: Nausea/Vomiting Stop: 11/07/18 16:00 Ondansetron HCl (Zofran) Confirm Administered Dose 4 mg .ROUTE .STK-MED ONE Stop: 11/07/18 10:00 Oxycodone HCl (Oxycontin) 10 mg PO ONETIME [facility] Stop: 07/18/18 18:00 Oxycodone HCl (Oxycontin) 10 mg PO ONETIME [facility] Stop: 08/01/18 14:00 Oxycodone HCl (Oxycontin) 10 mg PO ONETIME [facility] Stop: 11/07/18 14:00 Last Admin: 11/07/18 07:34 Dose: 10 mg Pregabalin (Lyrica) 50 mg PO ONETIME [facility] Stop: 07/18/18 18:00 Pregabalin (Lyrica) 50 mg PO ONETIME [facility] Stop: 08/01/18 14:00 Pregabalin (Lyrica) 50 mg PO ONETIME [facility] Stop: 11/07/18 14:00 Last Admin: 11/07/18 07:33 Dose: 50 mg Propofol (Diprivan 20 Ml) Confirm Administered Dose 400 mg .ROUTE .STK-MED ONE Stop: 11/07/18 07:23 Propofol (Diprivan 20 Ml) Confirm Administered Dose 200 mg .ROUTE .STK-MED ONE Stop: 11/07/18 07:24 Propofol (Diprivan 20 Ml) Confirm Administered Dose 400 mg .ROUTE .STK-MED ONE Stop: 11/07/18 09:56 Propofol (Diprivan 20 Ml) Confirm Administered Dose 200 mg .ROUTE .STK-MED ONE Stop: 11/07/18 09:57 Propofol (Diprivan 20 Ml) Confirm Administered Dose 200 mg .ROUTE .STK-MED ONE Stop: 11/07/18 09:58 Propofol (Diprivan 20 Ml) Confirm Administered Dose 200 mg .ROUTE .STK-MED ONE Stop: 11/07/18 09:58 Ropivacaine (Naropin 0.5%) Confirm Administered Dose 30 ml .ROUTE .STK-MED ONE Stop: 11/07/18 07:19 Sodium Chloride (Saline Flush) 10 ml FLUSH ASDIRECTED PRN PRN Reason: Keep Vein Open Stop: 07/18/18 18:00 Sodium Chloride (Saline Flush) 10 ml FLUSH ASDIRECTED PRN PRN Reason: Keep Vein Open Stop: 08/01/18 18:00 Tranexamic Acid (Cyklokapron) Confirm Administered Dose 1,000 mg .ROUTE .STK- MED ONE Stop: 11/07/18 07:32 Last Admin: 11/07/18 10:29 Dose: 1,000 mg Vancomycin HCl (Vancomycin) Confirm Administered Dose 1 gm .ROUTE .STK-MED ONE Stop: 11/07/18 07:32 Last Admin: 11/07/18 10:20 Dose: 1 gm - Exam Wound/Incisions: Dressing Dry and Intact General: Alert, Cooperative, No Acute Distress Lungs: Normal Respiratory Effort Extremities: Other (NVS intact for BLE. Anthony's negative.) - Problem List Review Problem List Initiated/Reviewed/Updated: Yes - My Orders Last 24 Hours: Active Orders 24 hr Category Date Time Status Patient Status [ADT] Routine ADT 11/07/18 07:00 Active Antiembolic Devices [RC] 09,21 Care 11/07/18 07:00 Active Pulse Oximetry [RC] ASDIRECTED Care 11/07/18 07:52 Active Ready for Discharge [RC] PER UNIT ROUTINE Care 11/08/18 07:54 Ordered Vital Signs [RC] Q4HR Care 11/07/18 07:00 Active Consult to Physician [CONS] Routine Cons 11/07/18 07:00 Active OT Evaluation and Treatment [CONS] Routine Cons 11/07/18 06:59 Active PT Evaluation and Treatment [CONS] Routine Cons 11/07/18 06:59 Active Regular Diet [DIET] Diet 11/07/18 Lunch Active Acetaminophen/oxyCODONE [Percocet 325-5 MG] Med 11/07/18 10:00 Active 1 - 2 tab PO Q4H PRN Aspirin [Ecotrin] Med 11/08/18 09:00 Active 325 mg PO BID Bisacodyl [Dulcolax] Med 11/07/18 10:00 Active 5 mg PO DAILY PRN Cholecalciferol (Vitamin D3) [Vitamin D3] Med 11/08/18 09:00 Active 5,000 unit PO DAILY Cyclobenzaprine [Flexeril] Med 11/07/18 10:00 Active 10 mg PO TID PRN Docusate Sodium [Colace] Med 11/07/18 21:00 Active 100 mg PO BID Famotidine [Pepcid] Med 11/07/18 21:00 Active 20 mg PO Q12H Ketorolac [Toradol] Med 11/07/18 10:00 Active 15 mg IVPUSH Q6H PRN Magnesium Hydroxide [Milk of Magnesia] Med 11/07/18 10:00 Active 30 ml PO BID PRN Metoprolol Succinate [Toprol XL] Med 11/08/18 09:00 Active 25 mg PO DAILY Morphine Med 11/07/18 10:00 Active 2 mg IVPUSH Q2H PRN Naloxone [Narcan] Med 11/07/18 10:00 Active 0.1 mg IVPUSH Q5M PRN Ondansetron [Zofran] Med 11/07/18 10:00 Active 4 mg IVPUSH Q6H PRN Sennosides [Senna] Med 11/07/18 10:00 Active 8.6 mg PO BID PRN ceFAZolin [Ancef] 2 gm Med 11/07/18 17:30 Active Premix Bag 1 bag IV Q8H Antiembolic Hose [OM.PC] Per Unit Routine Oth 11/07/18 07:01 Ordered Ice Therapy [OM.PC] Per Unit Routine Oth 11/07/18 07:00 Ordered Sequential Compression Device [OM.PC] Per Unit Routine Oth 11/07/18 06:59 Ordered Resuscitation Status Routine Resus Stat 11/07/18 07:00 Ordered Medication Orders Aspirin (Ecotrin) 325 mg PO BID [facility] Bisacodyl (Dulcolax) 5 mg PO DAILY PRN PRN Reason: Constipation Cholecalciferol (Vitamin D3) 5,000 unit PO DAILY [facility] Cyclobenzaprine HCl (Flexeril) 10 mg PO TID PRN PRN Reason: Spasms Last Admin: 11/07/18 15:45 Dose: 10 mg Docusate Sodium (Colace) 100 mg PO BID [facility] Last Admin: 11/07/18 20:56 Dose: 100 mg Famotidine (Pepcid) 20 mg PO Q12H [facility] Last Admin: 11/07/18 20:56 Dose: 20 mg Cefazolin Sodium/Dextrose 2 gm (/ Premix) 50 mls @ 100 mls/hr IV Q8H [facility] Stop: 11/08/18 09:59 Last Admin: 11/08/18 00:30 Dose: 100 mls/hr Infusion: 11/07/18 17:48 Dose: 100 mls/hr Admin: 11/07/18 17:18 Dose: 100 mls/hr Ketorolac Tromethamine (Toradol) 15 mg IVPUSH Q6H PRN PRN Reason: Pain Last Admin: 11/08/18 06:46 Dose: 15 mg Admin: 11/07/18 21:42 Dose: 15 mg Magnesium Hydroxide (Milk Of Magnesia) 30 ml PO BID PRN PRN Reason: Constipation Metoprolol Succinate (Toprol Xl) 25 mg PO DAILY [facility] Morphine Sulfate (Morphine) 2 mg IVPUSH Q2H PRN PRN Reason: Breakthrough Pain Naloxone HCl (Narcan) 0.1 mg IVPUSH Q5M PRN PRN Reason: Oversedation Ondansetron HCl (Zofran) 4 mg IVPUSH Q6H PRN PRN Reason: Nausea/Vomiting Oxycodone/Acetaminophen (Percocet 325-5 Mg) 1 - 2 tab PO Q4H PRN PRN Reason: Pain Last Admin: 11/08/18 03:50 Dose: 2 tab Admin: 11/07/18 18:33 Dose: 2 tab Admin: 11/07/18 13:43 Dose: 2 tab Senna (Senna) 8.6 mg PO BID PRN PRN Reason: Constipation - Assessment Assessment (Free Text/Narrative):: POD#1 - left TKA - Plan Plan (Free Text/Narrative):: 1. Hgb 13.2. 2. ASA 325mg PO BID. 3. Frequent mobility, TEDs. 4. Outpatient therapy. 5. Discharge to home today. The pt's case was discussed with Dr. Gonzalez.
--- NOTE | 2018-11-08 07:57 | PCM.DCSUM1 ---
Discharge Summary - Hospital Course Brief History: Robin is a 53yo male who underwent left TKA with Dr. Gonzalez on 11-07. The procedure was completed under spinal anesthesia with sedation. The pt tolerated the procedure well and was admitted to the Medical-Surgical Unit. Medical management was provided by the Hospitalist service. The pt's Hospital course was uneventful. The pt's Hgb on POD#1 was 13.2. On POD#1, 325mg ASA BID was initiated for VTE prophylaxis. SCDs and TEDs were also ordered. A Mepilex dressing was placed at the incision site at the time of surgery and remained clean and dry. The pt participated in P.T. and O.T. and progressed well. The pt was allowed to WBAT. On POD#1, the pt was deemed appropriate to discharge to home with his . - Discharge Data Discharge Date: 11/08/18 Discharge Disposition: Home, Self-Care 01 Condition: Good - Patient Summary/Data Consults: Consultations 11/07/18 06:59 OT Evaluation and Treatment [CONS] Routine PT Evaluation and Treatment [CONS] Routine 11/07/18 07:00 Consult to Physician [CONS] Routine - Patient Instructions Diet: Usual Diet as Tolerated Activity: Apply Ice, As Tolerated, Elevate Extremity, Full Weight Bearing Driving: Do Not Drive Showering/Bathing: May Shower Wound/Incision Care: Keep Operative Site/Wound Site Clean and Dry, Do NOT Change Dressing Notify Provider of: Fever, Increased Pain, Swelling and Redness, Drainage, Nausea and/or Vomiting Other/Special Instructions: Please get up and moving around EVERY HOUR while awake. This helps to prevent blood clots. Please use your walker and have help with mobility as needed. Take a short walk in your home every hour while awake. Please take 325mg Aspirin TWICE daily. The aspirin is being used for blood clot prevention and not for pain management so please do not miss a dose of the medication. You could use a medication like Zantac or Pepcid and a medication like Prilosec or Nexium to protect your stomach while using the aspirin. At home, please complete the exercises that you learned during the Hospital stay. Schedule for physical therapy. Use the pain medication as needed. The medication may cause drowsiness and constipation. Contact your primary care provider for instructions if you are constipated. You may use a stool softener like docusate sodium or Colace 100mg twice daily and/or a laxative like Miralax daily for constipation. Increase your water and fiber intake while you are using the pain medication. Please try to wean from use of the pain medication as soon as able. Please do not use other medications that may cause drowsiness (other pain medications, anxiety pills, cold medications, sleeping pills, etc) while using the prescription pain medication. Do not use alcohol while using the pain medication. Wear the ADDIE hose during the day and you may remove these at night. Elevate the limb to decrease swelling. Place ice to the area often. Place a towel between your skin and the blue pad. Use the incentive spirometer often. Take deep breaths throughout the day. Please keep the knee dressing in place until follow-up. Notify the Clinic if the dressing becomes saturated or rolls. Increase your protein intake while you are healing. If you have diabetes, please closely monitor your blood sugars and notify your primary care provider with abnormal values. Elevated blood sugars increases the risk of infection. Call the Clinic with questions or concerns - [phone]. - Discharge Plan *PRESCRIPTION DRUG MONITORING PROGRAM REVIEWED*: No *COPY OF PRESCRIPTION DRUG MONITORING REPORT IN PATIENT GERALDINE: No Prescriptions/Med Rec: Acetaminophen/oxyCODONE [Percocet 325-5 MG] 1 - 2 tab PO Q6H PRN #60 tablet PRN Reason: Pain Aspirin [Ecotrin] 325 mg PO BID #84 tab.ec Cyclobenzaprine [Flexeril] 10 mg PO TID PRN #40 tablet PRN Reason: Spasms Home Medications: Home Meds Cholecalciferol (Vitamin D3) [Vitamin D3] 5,000 unit PO DAILY 11/06/18 [History] Metoprolol Succinate [Toprol Xl] 25 mg PO DAILY 11/06/18 [History] Acetaminophen/oxyCODONE [Percocet 325-5 MG] 1 - 2 tab PO Q6H PRN #60 tablet [Rx] Aspirin [Ecotrin] 325 mg PO BID #84 tab.ec 11/07/18 [Rx] Bisacodyl [Dulcolax] 5 mg PO DAILY PRN tablet 11/07/18 [Rx] Cyclobenzaprine [Flexeril] 10 mg PO TID PRN #40 tablet 11/07/18 [Rx] Docusate Sodium [Colace] 100 mg PO BID cap 11/07/18 [Rx] Famotidine [Pepcid] 20 mg PO Q12H tablet 11/07/18 [Rx] Magnesium Hydroxide [Milk of Magnesia] 30 ml PO BID PRN cup 11/07/18 [Rx] Sennosides [Senna] 8.6 mg PO BID PRN tablet 11/07/18 [Rx] Referrals: Netta Nguyễn PA-C [Physician [employer]] - - Discharge Summary/Plan Comment DC Time >30 min.: No - Patient Data Vitals - Most Recent: Last Vital Signs Temp 98.1 F 11/07/18 20:52 Pulse 79 11/08/18 03:50 Resp 14 11/08/18 03:50 BP 131/85 11/08/18 03:50 Pulse Ox 95 11/08/18 03:50 Weight - Most Recent: 257 lb I&O - Last 24 hours: Intake & Output 11/07/18 11/08/18 11/08/18 22:59 06:59 14:59 Intake Total 1100 300 Balance 1100 300 Lab Results - Last 24 hrs: Laboratory Results - last 24 hr 11/07/18 11/08/18 11/08/18 Range/Units 07:37 05:30 05:30 WBC 8.50 (4.23-9.07) K/mm3 RBC 4.49 L (4.63-6.08) M/mm3 Hgb 13.2 L (13.7-17.5) gm/L Hct 39.4 L (40.1-51.0) % MCV 87.8 (79.0-92.2) fl MCH 29.4 (25.7-32.2) pg MCHC 33.5 (32.2-35.5) g/dl RDW Std Deviation 40.9 (35.1-43.9) fL Plt Count 197 (163-337) K/mm3 MPV 9.8 (9.4-12.3) fl APTT 29 (24-31) SECONDS Sodium 137 (136-145) mEq/L Potassium 4.1 (3.5-5.1) mEq/L Chloride 103 (98-107) mEq/L Carbon Dioxide 26 (21-32) mEq/L Anion Gap 12.1 (5-15) BUN 17 (7-18) mg/dL Creatinine 1.1 (0.7-1.3) mg/dL Est Cr Clr Drug Dosing 87.20 mL/min Estimated GFR (MDRD) > 60 (>60) mL/min BUN/Creatinine Ratio 15.5 (14-18) Glucose 118 H (74-106) mg/dL Calcium 8.2 L (8.5-10.1) mg/dL Total Bilirubin 1.2 H (0.2-1.0) mg/dL AST 15 (15-37) U/L ALT 34 (16-63) U/L Alkaline Phosphatase 46 (46-116) U/L Total Protein 6.2 L (6.4-8.2) g/dl Albumin 3.2 L (3.4-5.0) g/dl Globulin 3.0 gm/dL Albumin/Globulin Ratio 1.1 (1-2) Med Orders - Current: Current Medications Aspirin (Ecotrin) 325 mg PO BID [facility] Bisacodyl (Dulcolax) 5 mg PO DAILY PRN PRN Reason: Constipation Cholecalciferol (Vitamin D3) 5,000 unit PO DAILY [facility] Cyclobenzaprine HCl (Flexeril) 10 mg PO TID PRN PRN Reason: Spasms Last Admin: 11/07/18 15:45 Dose: 10 mg Docusate Sodium (Colace) 100 mg PO BID [facility] Last Admin: 11/07/18 20:56 Dose: 100 mg Famotidine (Pepcid) 20 mg PO Q12H [facility] Last Admin: 11/07/18 20:56 Dose: 20 mg Cefazolin Sodium/Dextrose 2 gm (/ Premix) 50 mls @ 100 mls/hr IV Q8H [facility] Stop: 11/08/18 09:59 Last Admin: 11/08/18 00:30 Dose: 100 mls/hr Ketorolac Tromethamine (Toradol) 15 mg IVPUSH Q6H PRN PRN Reason: Pain Last Admin: 11/08/18 06:46 Dose: 15 mg Magnesium Hydroxide (Milk Of Magnesia) 30 ml PO BID PRN PRN Reason: Constipation Metoprolol Succinate (Toprol Xl) 25 mg PO DAILY [facility] Morphine Sulfate (Morphine) 2 mg IVPUSH Q2H PRN PRN Reason: Breakthrough Pain Naloxone HCl (Narcan) 0.1 mg IVPUSH Q5M PRN PRN Reason: Oversedation Ondansetron HCl (Zofran) 4 mg IVPUSH Q6H PRN PRN Reason: Nausea/Vomiting Oxycodone/Acetaminophen (Percocet 325-5 Mg) 1 - 2 tab PO Q4H PRN PRN Reason: Pain Last Admin: 11/08/18 03:50 Dose: 2 tab Senna (Senna) 8.6 mg PO BID PRN PRN Reason: Constipation Discontinued Medications Acetaminophen (Tylenol) 975 mg PO ONETIME [facility] Stop: 07/18/18 18:00 Acetaminophen (Tylenol) 975 mg PO ONETIME [facility] Stop: 08/01/18 14:00 Acetaminophen (Tylenol) 975 mg PO ONETIME [facility] Stop: 11/07/18 14:00 Last Admin: 11/07/18 07:35 Dose: 975 mg Bupivacaine HCl (Sensorcaine-Mpf 0.75%) Confirm Administered Dose 30 ml .ROUTE .STK-MED ONE Stop: 11/07/18 07:31 Bupivacaine HCl (Sensorcaine-Mpf 0.25%) Confirm Administered Dose 30 ml .ROUTE .STK-MED ONE Stop: 11/07/18 07:33 Last Admin: 11/07/18 10:18 Dose: 30 ml Bupivacaine HCl (Sensorcaine-Mpf 0.75%) Confirm Administered Dose 30 ml .ROUTE .STK-MED ONE Stop: 11/07/18 10:00 Cefazolin Sodium (Ancef) Confirm Administered Dose 2 gm .ROUTE .STK-MED ONE Stop: 11/07/18 07:33 Last Admin: 11/07/18 10:12 Dose: 2 gm Cefazolin Sodium (Ancef) Confirm Administered Dose 2 gm .ROUTE .STK-MED ONE Stop: 11/07/18 09:27 Cefazolin Sodium (Ancef) Confirm Administered Dose 2 gm .ROUTE .STK-MED ONE Stop: 11/07/18 10:03 Morphine Sulfate 8 mg/Epinephrine HCl 0.3 mg/Cefuroxime Sodium 750 mg/Ketorolac Tromethamine 30 mg/Sodium Chloride 27.9 ml 0 mg .XX ONETIME ONE Stop: 11/07/18 09:01 Last Admin: 11/07/18 13:58 Dose: Not Given Diphenhydramine HCl (Benadryl) 25 mg IVPUSH Q6H PRN PRN Reason: pruritis Stop: 11/07/18 16:00 Ephedrine Sulfate (Ephedrine In Ns) Confirm Administered Dose 25 mg .ROUTE .STK- MED ONE Stop: 11/07/18 09:40 Epinephrine HCl (Adrenalin) Confirm Administered Dose 1 mg .ROUTE .STK-MED ONE Stop: 11/07/18 07:19 Fentanyl (Sublimaze) Confirm Administered Dose 100 mcg .ROUTE .STK-MED ONE Stop: 11/07/18 07:23 Fentanyl (Sublimaze) 50 mcg IVPUSH Q5M PRN PRN Reason: Pain Stop: 11/07/18 16:00 Fentanyl (Sublimaze) Confirm Administered Dose 100 mcg .ROUTE .STK-MED ONE Stop: 11/07/18 09:56 Lactated Ringer's (Ringers, Lactated) 1,000 mls @ 125 mls/hr IV ASDIRECTED [facility] Stop: 07/18/18 23:00 Lactated Ringer's (Ringers, Lactated) 1,000 mls @ 125 mls/hr IV ASDIRECTED [facility] Stop: 08/01/18 23:00 Lactated Ringer's (Ringers, Lactated) 1,000 mls @ 125 mls/hr IV ASDIRECTED [facility] Stop: 11/07/18 23:00 Last Admin: 11/07/18 07:45 Dose: 125 mls/hr Lidocaine HCl (Xylocaine-Mpf 1%) Confirm Administered Dose 4 mls @ as directed .ROUTE .STK-MED ONE Stop: 11/07/18 07:28 Lidocaine HCl (Xylocaine-Mpf 1%) Confirm Administered Dose 2 mls @ as directed .ROUTE .STK-MED ONE Stop: 11/07/18 07:31 Lactated Ringer's (Ringers, Lactated) Confirm Administered Dose 1,000 mls @ as directed .ROUTE .STK-MED ONE Stop: 11/07/18 09:23 Lidocaine HCl (Xylocaine-Mpf 1%) Confirm Administered Dose 0 mls @ as directed .ROUTE .STK-MED ONE Stop: 11/07/18 10:00 Iodine (Iodine 2% Mild Tincture) Confirm Administered Dose 30 ml .ROUTE .STK- MED ONE Stop: 11/07/18 07:32 Last Admin: 11/07/18 10:10 Dose: 18 ml Lidocaine/Sodium Bicarbonate (Buffered Lidocaine 1% In Ns 8.4%) 0.25 ml IDERM ONETIME PRN PRN Reason: Prior to IV Start Stop: 07/18/18 18:00 Lidocaine/Sodium Bicarbonate (Buffered Lidocaine 1% In Ns 8.4%) 0.25 ml IDERM ONETIME PRN PRN Reason: Prior to IV Start Stop: 08/01/18 18:00 Lidocaine/Sodium Bicarbonate (Buffered Lidocaine 1% In Ns 8.4%) 0.25 ml IDERM ONETIME PRN PRN Reason: Prior to IV Start Stop: 11/07/18 18:00 Last Admin: 11/07/18 07:45 Dose: 0.25 ml Midazolam HCl (Versed 1 Mg/Ml) Confirm Administered Dose 2 mg .ROUTE .STK-MED ONE Stop: 11/07/18 07:24 Midazolam HCl (Versed 1 Mg/Ml) Confirm Administered Dose 2 mg .ROUTE .STK-MED ONE Stop: 11/07/18 09:57 Ondansetron HCl (Zofran) 4 mg IVPUSH ONETIME PRN PRN Reason: Nausea/Vomiting Stop: 11/07/18 16:00 Ondansetron HCl (Zofran) Confirm Administered Dose 4 mg .ROUTE .STK-MED ONE Stop: 11/07/18 10:00 Oxycodone HCl (Oxycontin) 10 mg PO ONETIME [facility] Stop: 07/18/18 18:00 Oxycodone HCl (Oxycontin) 10 mg PO ONETIME [facility] Stop: 08/01/18 14:00 Oxycodone HCl (Oxycontin) 10 mg PO ONETIME [facility] Stop: 11/07/18 14:00 Last Admin: 11/07/18 07:34 Dose: 10 mg Pregabalin (Lyrica) 50 mg PO ONETIME [facility] Stop: 07/18/18 18:00 Pregabalin (Lyrica) 50 mg PO ONETIME [facility] Stop: 08/01/18 14:00 Pregabalin (Lyrica) 50 mg PO ONETIME [facility] Stop: 11/07/18 14:00 Last Admin: 11/07/18 07:33 Dose: 50 mg Propofol (Diprivan 20 Ml) Confirm Administered Dose 400 mg .ROUTE .STK-MED ONE Stop: 11/07/18 07:23 Propofol (Diprivan 20 Ml) Confirm Administered Dose 200 mg .ROUTE .STK-MED ONE Stop: 11/07/18 07:24 Propofol (Diprivan 20 Ml) Confirm Administered Dose 400 mg .ROUTE .STK-MED ONE Stop: 11/07/18 09:56 Propofol (Diprivan 20 Ml) Confirm Administered Dose 200 mg .ROUTE .STK-MED ONE Stop: 11/07/18 09:57 Propofol (Diprivan 20 Ml) Confirm Administered Dose 200 mg .ROUTE .STK-MED ONE Stop: 11/07/18 09:58 Propofol (Diprivan 20 Ml) Confirm Administered Dose 200 mg .ROUTE .STK-MED ONE Stop: 11/07/18 09:58 Ropivacaine (Naropin 0.5%) Confirm Administered Dose 30 ml .ROUTE .STK-MED ONE Stop: 11/07/18 07:19 Sodium Chloride (Saline Flush) 10 ml FLUSH ASDIRECTED PRN PRN Reason: Keep Vein Open Stop: 07/18/18 18:00 Sodium Chloride (Saline Flush) 10 ml FLUSH ASDIRECTED PRN PRN Reason: Keep Vein Open Stop: 08/01/18 18:00 Tranexamic Acid (Cyklokapron) Confirm Administered Dose 1,000 mg .ROUTE .STK- MED ONE Stop: 11/07/18 07:32 Last Admin: 11/07/18 10:29 Dose: 1,000 mg Vancomycin HCl (Vancomycin) Confirm Administered Dose 1 gm .ROUTE .STK-MED ONE Stop: 11/07/18 07:32 Last Admin: 11/07/18 10:20 Dose: 1 gm
[2018-11-08] MEDS: Docusate Sodium 100 MG Cap PO SCH (08:14)
[2018-11-08] MEDS: Famotidine 20 MG Tab PO SCH (08:18)
[2018-11-08 08:19] VITALS: BP 125/82
--- NOTE | 2018-11-08 08:49 | PCM48HPAN ---
Post Anesthesia Note - EVALUATION WITHIN 48HRS OF ANESTHETIC Vital Signs in Normal Range: Yes Patient Participated in Evaluation: Yes Respiratory Function Stable: Yes Airway Patent: Yes Cardiovascular Function Stable: Yes Hydration Status Stable: Yes Pain Control Satisfactory: Yes Nausea and Vomiting Control Satisfactory: Yes Mental Status Recovered: Yes Pulse Rate: 79 Resp Rate: 14 Temperature: 36.7 C Blood Pressure: 125/82 - COMMENTS/OBSERVATIONS Free Text/Narrative:: no anesthesia complications noted
[2018-11-08] MEDS ORDERED: Aspirin 325 MG Tab.EC PO SCH (09:00)
[2018-11-08] MEDS ORDERED: Metoprolol Succinate 25 MG Tab.ER PO SCH (09:00)
[2018-11-08] MEDS ORDERED: Cholecalciferol (Vitamin D3) 5,000 UNIT Tab PO SCH (09:00)
[2018-11-08] MEDS: Cyclobenzaprine 10 MG Tab PO PRN (10:41)
--- NOTE | 2018-11-10 11:24 | PCM.OPNOTE ---
- General Post-Op/Procedure Note Date of Surgery/Procedure: 11/07/18 Operative Procedure(s): left total knee arthroplasty Pre Op Diagnosis: left knee osteoarthrosis Post-Op Diagnosis: Same Anesthesia Technique: Local, MAC, Spinal Primary Surgeon: Rangel Gonzalez Anesthesia Provider: Isabel Nicole Assistant Technician: eNtta Nguyễn Assistant Technician: Xochilt Guillermo EBJoyce in mLs: 200 Complications: None Condition: Good Free Text/Narrative:: size 7 size 7 9mm 35x10
--- NOTE | 2018-11-10 12:03 | OR ---
DATE OF OPERATION: 11/07/2018 SURGEON: Rangel Gonzalez MD OPERATION PERFORMED: Left total knee arthroplasty. PREOPERATIVE DIAGNOSIS: Left knee osteoarthrosis. POSTOPERATIVE DIAGNOSIS: Left knee osteoarthrosis. ANESTHESIA: Local MAC with spinal. ANESTHESIA PROVIDER: Isabel Nicole CRNA. ORGANISATION AND METHODS ANALYST: Xochilt Guillermo LPN. ESTIMATED BLOOD LOSS: 200 mL. COMPLICATIONS: None. CONDITION: Stable. IMPLANTS: 1. [place] size 7 CR femur. 2. Gail size 7 press-fit tibial base plate. 3. [place] size 7.9 mm CS polyethylene insert. 4. Gail size 35 x 7 mm press-fit patella. DESCRIPTION OF PROCEDURE: The patient was identified in the preop holding area. Proper site was marked and identified by the surgeon. The patient was taken back to the operating theater. After adequate anesthesia, the patient's left lower extremity had a nonsterile tourniquet applied and it was sterilely prepped and draped in the usual sterile fashion. OR time-out was performed. The patient received 2 g IV Ancef. At this time, the left lower extremity was exsanguinated. Tourniquet was insufflated to 300 mmHg. Standard medial parapatellar incision was made. Medial parapatellar arthrotomy was created. Deep fibers of the MCL were raised and anterior fat pad was resected. At this time, attention was turned to the patella. Patella measured 27, it was resected to a 16 for a 35 x 10 mm patella. Drill holes were then drilled and found to be in adequate position. The drill was then drilled in the distal femur and the intramedullary distal femoral cutting guide was then placed. 8 mm was resected off the distal femur and was found to be an adequate resection. Sizing guide was placed. It was found to be a size 7 press-fit CR femur that was shown on the implant record at the beginning of this dictation. The drill holes were drilled for the epicondylar axis using Whitesides line and epicondyles as reference. At this time, the 4-in - 1 cutting block was placed. An anterior posterior and anterior and posterior chamfer cuts were then completed. Attention was turned to the tibia. The posterior medial lateral retractors were placed. The extramedullary tibial guide was placed. It was placed in the old footprint of the ACL. It was aligned with the center of the ankle and 0 degrees of slope, 9 mm was then resected off the unaffected side. There was found to be an acceptable reduction. At this time, posterior osteophytes were removed along with medial and lateral meniscus. A trial implant was placed with a correct sized tibia that was mentioned at the beginning of the dictation. A Gail size 7.9 mm CS polyethylene insert was then placed. The patient's knee was brought through range of motion. The patella was tracking centrally and was stable to varus and valgus stress. Alignment was found to be roughly at 0 degrees. The tibia was stamped and drilled in proper rotation. The universal tibial base plate was impacted in place. Next, the Gail size 7 press-fit CR femur impacted into place and the [place] size 7.9 mm CS polyethylene insert was placed. The patient's knee was brought into full extension. The patella was then press-fit in place at this time. Tourniquet was deflated. One liter dilute Betadine solution was irrigated through the knee along with 3 L of pulse lavage irrigation with Ancef. Periarticular injection was then completed. The patient's knee was brought through a range of motion. Knee was found to be stable to varus valgus stress, the patella was tracking centrally with full range of motion. At this time, a #2 barbed suture was used for closure of the medial parapatellar arthrotomy. Topical tranexamic acid was placed. 2-0 Vicryl was used subcutaneously, Prineo was used for the skin. The patient tolerated the procedure well and was sent to the PACU in stable condition. SILVERIO /[id number] NEYMAR
== END 2018-11-08 13:01 | disposition home or self-care (01) | DRG 470 ==
LOC: JD.MS 11-07 07:17 → EDSTATUS 11-07 08:45
PROVIDERS: ADMIT Orthopaedic Surgery; ATTEND Orthopaedic Surgery
PROC: 0SRD0JA Replacement of Left Knee Joint with Synthetic Substitute, Uncemented, Open Approach (ICD-10-PCS; principal; 2018-11-07)
PROC: 3E0T3BZ Introduction of Anesthetic Agent into Peripheral Nerves and Plexi, Percutaneous Approach (ICD-10-PCS; 2018-11-07)
DX: M17.12 Unilateral primary osteoarthritis, left knee (principal); G89.18 Other acute postprocedural pain; M25.762 Osteophyte, left knee; I10 Essential (primary) hypertension; G47.33 Obstructive sleep apnea (adult) (pediatric); G89.29 Other chronic pain; I51.7 Cardiomegaly; H91.90 Unspecified hearing loss, unspecified ear; I71.2 Thoracic aortic aneurysm, without rupture; M47.9 Spondylosis, unspecified; F17.220 Nicotine dependence, chewing tobacco, uncomplicated; Z79.899 Other long term (current) drug therapy
CPT/HCPCS: 01402; 36415; 64450; 73560-26-LT; 73560-LT; 80053; 85027; 85730; 87641; 97110-GP; 97116-GP; 97161-GP; 97165-GO; 97535-GO; A9270-GY; C1776; J0171; J0690; J0697; J1885; J2001; J2250; J2270; J2405; J2704; J2795; J3010; J3370; J3490; J7050; J7120